=== PATIENT | male | born 1975 | race Caucasian/White ===

== ENCOUNTER 2017-07-26 23:31 | Emergency (ER) | payer MEDICAID ==
[~2017-07-26] VITALS: Ht 175.3 cm; Wt 75.0 kg
[2017-07-26] MEDS ORDERED: NALOXONE 1 MG/ML, 2ML ONE (23:35)
[2017-07-26] MEDS ORDERED: SODIUM CHLORIDE 0.9% 1,000 ML IV ONE (23:43)
[2017-07-27] MEDS ORDERED: SODIUM CHLORIDE 0.9% 1,000ML IVBOLUS ONE
[2017-07-27] MEDS ORDERED: NALOXONE 0.4 MG/ML, 1ML IVPush PRN
[2017-07-27 02:46] VITALS: BP 120/74
== END 2017-07-27 02:48 | disposition home or self-care (01) ==
LOC: ED 23:59
DX: T40.1X1A Poisoning by heroin, accidental (unintentional), initial encounter (principal); T51.0X1A Toxic effect of ethanol, accidental (unintentional), initial encounter; Z72.89 Other problems related to lifestyle; Y92.89 Other specified places as the place of occurrence of the external cause
CPT/HCPCS: 82962; 93005; 96360; 99284; J7030